=== PATIENT | female | born 1980 | race Hispanic/Latino ===

== ENCOUNTER → 2021-07-08 | Outpatient (CLI) | payer BC | END | disposition home or self-care (01) | LOC: RAH 13:22 | PROVIDERS: ATTEND Obstetrics & Gynecology | DX: N64.89 Other specified disorders of breast (principal); R92.2 Inconclusive mammogram | CPT/HCPCS: 76641; 77065 ==

== ENCOUNTER → 2021-09-20 | Outpatient (CLI) | payer OTHER | END | disposition home or self-care (01) | LOC: OIH 07:44 | PROVIDERS: ATTEND Nurse Practitioner Family | DX: Z13.6 Encounter for screening for cardiovascular disorders (principal) | CPT/HCPCS: 75571 ==

== ENCOUNTER → 2022-08-10 | Outpatient (CLI) | payer BC | END | disposition home or self-care (01) | LOC: RAH 10:50 | PROVIDERS: ATTEND Obstetrics & Gynecology | DX: Z12.31 Encounter for screening mammogram for malignant neoplasm of breast (principal) | CPT/HCPCS: 77067 ==

== ENCOUNTER → 2023-10-30 | Outpatient (CLI) | payer BC | END | disposition home or self-care (01) | LOC: RAH 10:40 | PROVIDERS: ATTEND Obstetrics & Gynecology | DX: Z12.31 Encounter for screening mammogram for malignant neoplasm of breast (principal); R92.323 Mammographic fibroglandular density, bilateral breasts | CPT/HCPCS: 77067 ==

== ENCOUNTER → 2024-11-11 | Outpatient (CLI) | payer BC ==
--- NOTE | 2024-11-13 09:00 | HMCIMG ---
Exam Type: MAMMO SCREENING BILATERAL Clinical Information: ANNUAL SCREENING Comparison: October 30, 2023 Technique: Mammogram with CAD was performed with CC and MLO projections. CAD shows no worrisome regions. FINDINGS: The breasts are heterogeneously dense, which may obscure small masses. No dominant mass or suspicious microcalcification identified. There is no nipple retraction or skin thickening. Benign-appearing calcifications are seen. CAD shows no worrisome regions. IMPRESSION: 1. No mammographic signs of malignancy. 2. Routine follow-up recommended. CATEGORY 2: BENIGN FINDINGS Note: A negative x-ray should not delay biopsy if a dominant or clinically suspicious mass is present, since 8-10% of cancers are not identified by mammography. Dense breasts may obscure an underlying neoplasm.
== END | disposition home or self-care (01) ==
LOC: RAH 08:18
PROVIDERS: ATTEND Obstetrics & Gynecology
DX: Z12.31 Encounter for screening mammogram for malignant neoplasm of breast (principal); R92.333 Mammographic heterogeneous density, bilateral breasts
CPT/HCPCS: 77067

== ENCOUNTER → 2024-11-28 | Outpatient (CLI) | payer BC ==
--- NOTE | 2024-11-28 13:59 | HMCIMG ---
US ABDOMINAL COMPLETE REASON: fatty change of liver COMPARISON: None FINDINGS: There is normal sonographic appearance of the liver. There are no focal mass lesions. The liver is not enlarged.There is a normal-appearing gallbladder. Kidneys appear normal in size and appearance. There is no evidence of mass, stone or hydronephrosis. Spleen and common duct appear normal. Aorta and inferior vena cava appear normal. The pancreas appears normal as well. IMPRESSION: Normal abdomen sonogram.
== END | disposition home or self-care (01) ==
LOC: RAH 07:43
PROVIDERS: ATTEND Nurse Practitioner Family
DX: K76.0 Fatty (change of) liver, not elsewhere classified (principal)
CPT/HCPCS: 76700

== ENCOUNTER → 2024-12-06 | Outpatient (CLI) | payer BC ==
--- NOTE | 2024-12-06 12:14 | HMCIMG ---
Exam Type: US TRANSVAGINAL NON-OB Clinical Information: PELVIC AND PERINEAL PAIN Comparison: None Findings: The uterus is normal in size and echogenicity. The endometrial lining is normal in thickness. No intrauterine or ectopic seen. IUD is noted in place. The ovaries are normal in size and echogenicity. Vascular Doppler flow exam and spectral analysis of waveforms analysis is unremarkable bilaterally. There is preserved vascularity to both ovaries on Doppler evaluation. Specifically, there is no evidence of ovarian torsion. No free fluid is noted throughout the cul-de-sac. There are no adnexal abnormalities. No other significant abnormalities are seen. No fluid collections or masses or free fluid are identified in the pelvis. Impression: NORMAL EXAM. No evidence of uterine pathology. No evidence of adnexal abnormalities or ovarian torsion. IUD is noted in place. No intrauterine or ectopic seen.
== END | disposition home or self-care (01) ==
LOC: RAH 10:08
PROVIDERS: ATTEND Obstetrics & Gynecology
DX: N93.9 Abnormal uterine and vaginal bleeding, unspecified (principal); R10.2 Pelvic and perineal pain
CPT/HCPCS: 76830